=== PATIENT | male | born 1960 | race Two or more races ===

== ENCOUNTER → 2020-06-13 | Outpatient (CLI) | payer OTHER ==
[2016-03-07 21:28] VITALS: BP 124/64
[~2020-06-13] MED LIST: ASPI-630 PO; ATOR40TA PO; CYCL-331 PO; LISI40TA6 PO; MELO15TA23 PO; METF500T16 PO; METO25TA4 PO; PANT40TA3 PO; TICA90TA PO
== END ==
LOC: LAB 08:00
PROVIDERS: ATTEND Nurse Anesthetist, Certified Registered
DX: Z01.812 Encounter for preprocedural laboratory examination (principal); Z20.822 Contact with and (suspected) exposure to COVID-19
CPT/HCPCS: U0003

== ENCOUNTER → 2020-06-17 | Day surgery (SDC) | payer OTHER ==
[~2020-06-17] MED LIST changes: +IPRATRPIUM/ALBUTEROL 0.5/2.5MG 3 ML NEBU. NEB PRN; +IV RINGERS SOLUTION,LACTATED 1,000 ML IV SCH; +LIDOCAINE 2% PF 5 ML VIAL. ONE; +MIDAZOLAM HCL PF 2 MG/2 ML VIAL. IV ONE; +ONDANSETRON PF 4 MG/2 ML VIAL. IV PRN; +PROPOFOL 10,000 MCG/ML (20ML) VIAL IV ONE
[2020-06-17 08:46] VITALS: BP 149/84
== END | disposition home or self-care (01) ==
LOC: SURG 06:50
PROVIDERS: ATTEND Emergency Medicine
DX: Z12.11 Encounter for screening for malignant neoplasm of colon (principal); K57.30 Diverticulosis of large intestine without perforation or abscess without bleeding; K62.1 Rectal polyp; K63.5 Polyp of colon; I25.10 Atherosclerotic heart disease of native coronary artery without angina pectoris; F17.210 Nicotine dependence, cigarettes, uncomplicated; Z98.61 Coronary angioplasty status; Z79.899 Other long term (current) drug therapy; Z79.82 Long term (current) use of aspirin; Z72.89 Other problems related to lifestyle
CPT/HCPCS: 45380; 82947; 88305; J2001; J2704; J7120

== ENCOUNTER → 2020-09-03 | Day surgery (SDC) | payer OTHER ==
[2020-06-17 08:46] VITALS: BP 149/84
[~2020-09-03] MED LIST changes: -IPRATRPIUM/ALBUTEROL 0.5/2.5MG 3 ML NEBU. NEB PRN; -IV RINGERS SOLUTION,LACTATED 1,000 ML IV SCH; -LIDOCAINE 2% PF 5 ML VIAL. ONE; -MIDAZOLAM HCL PF 2 MG/2 ML VIAL. IV ONE; -ONDANSETRON PF 4 MG/2 ML VIAL. IV PRN; -PROPOFOL 10,000 MCG/ML (20ML) VIAL IV ONE
== END | disposition home or self-care (01) ==
LOC: SURG 13:05
PROVIDERS: ATTEND Anesthesiology
DX: M54.16 Radiculopathy, lumbar region (principal); M51.36 Other intervertebral disc degeneration, lumbar region; I10 Essential (primary) hypertension; I25.10 Atherosclerotic heart disease of native coronary artery without angina pectoris; F17.210 Nicotine dependence, cigarettes, uncomplicated; Z79.899 Other long term (current) drug therapy; Z98.890 Other specified postprocedural states; Z79.82 Long term (current) use of aspirin; Z79.84 Long term (current) use of oral hypoglycemic drugs; Z98.61 Coronary angioplasty status; Z72.89 Other problems related to lifestyle; Z86.010 Personal history of colon polyps
CPT/HCPCS: 99203; G0463